=== PATIENT | female | born 1980 | race American Indian/Alaskan Native ===

== ENCOUNTER 2020-09-03 12:01 | Outpatient (CLI) | payer OTHER ==
--- NOTE | 2020-09-03 13:40 | Mammography Report ---
DIGITAL SCREENING MAMMOGRAM WITH CAD, 09/03/2020 CLINICAL INFORMATION / INDICATION: Routine screening mammography. SCREENING MAMMO. History of bilater al breast reduction. TECHNIQUE: Digital bilateral 2D mammography was obtained in the craniocaudal and mediolateral obliqu e projections. This examination was interpreted with the benefit of Computer-Aided Detection analysis . COMPARISON: 08/21/19, 08/16/18 FINDINGS: Breast Density: There are scattered areas of fibroglandular density. No dominant mass, suspicious calcifications, or architectural distortion in either breast. Right breast benign-appearing nodule with associated biopsy marker is stable. Right breast benign-juma earing calcification is stable. IMPRESSION: No mammographic evidence of malignancy. Follow up recommendation: Routine yearly BI-RADS Category 2: Benign. A "normal" or negative report should not discourage follow up or biopsy of a clinically significant f inding. A written summary of these findings will be mailed to the patient. The patient will be entered into a mammography reporting system which will generate a reminder letter for the patient's next appointmen t at the appropriate interval. The [employer] recommends yearly mammograms starting at age 40 and continuing as l danis as a woman is in good health. Breast MRI is recommended for women with an approximate 20-25% or greater lifetime risk of breast cancer, including women with a strong family history of breast or ova cathleen cancer or who have been treated for Hodgkin's disease. Signer Name: Jj Bowers MD Signed: 09/03/2020 1:36 PM Workstation Name: [id number]
== END 2020-09-03 12:02 | disposition home or self-care (01) ==
LOC: SPVWC 12:01
PROVIDERS: ATTEND Surgery
DX: Z12.31 Encounter for screening mammogram for malignant neoplasm of breast (principal); N64.89 Other specified disorders of breast
CPT/HCPCS: 77067